=== PATIENT | male | born 1955 | race Caucasian/White ===

== ENCOUNTER 2023-11-03 13:50 | Emergency (ER) | payer MEDICARE, SELFPAY ==
[2023-11-03 13:57] VITALS: BP 112/62; PULSE 86; RESP 16; TEMP 36.8; O2SAT 96; BMI 20.9
== END 2023-11-03 15:30 | disposition left against medical advice (07) ==
LOC: ER 14:01
PROVIDERS: Emergency Provider Emergency Medicine Emergency Medical Services
DX: Z53.21 Procedure and treatment not carried out due to patient leaving prior to being seen by health care provider (principal)